=== PATIENT | male | born 1970 | race Asian ===

== ENCOUNTER 2022-05-26 18:19 | Emergency (ER) | payer OTHER ==
[2022-05-26 19:00] VITALS: BP 144/86; PULSE 71; RESP 18; TEMP 97; BMI 33.0
[2022-05-26] MEDS ORDERED: KETOROLAC TROMETHAMINE 30 MG/1 ML VIAL IM ONE (19:55)
[2022-05-26] MEDS ORDERED: LIDOCAINE 5% TOPICAL PATCH TP ONE (19:59)
[2022-05-26] MEDS ORDERED: KETOROLAC TROMETHAMINE 30 MG/1 ML VIAL ONE (20:00)
[2022-05-26] MEDS ORDERED: LIDOCAINE 5% TOPICAL PATCH ONE (20:00)
[2022-05-26] MEDS ORDERED: LIDOCAINE PATCH REMOVAL MC SCH (22:00)
== END 2022-05-26 21:05 | disposition home or self-care (01) ==
LOC: JERFT 18:19
PROC: 3E0233Z Introduction of Anti-inflammatory into Muscle, Percutaneous Approach (ICD-10-PCS; principal; 2022-05-26)
DX: S20.212A Contusion of left front wall of thorax, initial encounter (principal); S80.01XA Contusion of right knee, initial encounter; V00.811A Fall from moving wheelchair (powered), initial encounter
CPT/HCPCS: 71101-TC-LT-FY; 73562-TC-RT-FY; 99284-25